=== PATIENT | female | born 1985 | race Caucasian/White ===

== ENCOUNTER 2017-03-08 06:45 | Day surgery (SDC) | payer BC ==
[~2017-03-08 06:45] MED LIST: RINGER'S SOLUTION,LACTATED 1,000 ML IV PRN; ROPIVACAINE HCL/PF 40 MG in NORMAL SALINE 16 ML IJ PRN; ceFAZolin SODIUM 1 GM VIAL IV PRN
[2017-03-08] MEDS ORDERED: RINGER'S SOLUTION,LACTATED 1,000 ML IV ONE (07:30)
[2017-03-08 10:04] VITALS: BP 110/65
--- NOTE | 2017-03-08 10:30 | OR ---
Operative Report - Dictated Report Narrative: Date: 03/08/2017 Physician: Chrsitiano Nelson M.D. 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 Cespedes Is a 31 year-old female who has been followed in my clinic with complaints of knee pain consistent with suspected patellofemoral pathology. She had previously undergone anterior cruciate ligament reconstruction multiple years ago and had ongoing anterior knee pain. Physical exam and diagnostic imaging were consistent with these complaints and concern for patellofemoral pathology. Conservative measures have failed including, but not limited to, passage of time, activity modification, medications, and injections. The risks , benefits, and alternatives were discussed in clinic. The risks being , bleeding, infection, blood clots, nerve, tendon, ligament, blood vessel injury, persistent pain, arthrosis, need for additional procedures, and persistent symptoms. Consent was obtained in the clinic. Procedure: After marking the correct extremity in the preoperative holding area, a timeout was performed in the operating room. IV antibiotics consisting of Ancef were administered prior to the procedure. A well-padded tourniquet was applied to the operative upper thigh. The leg was prepped and draped in a standard sterile fashion. 0.5% Marcaine with epinephrine was infused into the projected portal sites as well as the intra-articular space. A ward incision was made for inferior lateral portal. A blunt trocar and cannula was introduced into the knee. The suprapatellar pouch revealed no pathology. The medial patella facet showed grade 4 changes with notable loss of articular cartilage. The lateral patella facet showed grade 3 change with fissuring and minimal remaining articular cartilage lateral to the apex. The trochlea showed complete loss of articular cartilage over the entire width and length of the trochlea. The medial gutter revealed no pathology. The medial joint space was then entered utilizing a lateral post and valgus stress. A spinal needle was utilized for guidance into placement of an anterior medial portal. This was placed just superior to the medial meniscus ensuring that we could reach the posterior aspect of the medial joint space. A ward incision was made in the site, and the probe was introduced to the knee. The medial joint space was examined, and the medial femoral condyle showed no arthrosis. The medial tibial plateau showed no arthrosis. The medial meniscus no tear. The notch was then examined, and the ACL was noted to be intact. The PCL was noted to be intact. The lateral joint space was then examined using a varus force in the figure 4 position. Lateral femoral condyle showed no arthrosis. Lateral tibial plateau showed no arthrosis. The lateral meniscus showed no tear. The lateral gutter showed no pathology. The patella was mobilized both medially and laterally and was noted that it could significantly sublux laterally once the leg was relaxed. The denuded area of cartilage off the patella did engage with the lateral trochlear ridge. For this reason it was felt that a lateral release was not appropriate procedure as this would add to her instability. Once it was felt that we adequately addressed the pathology, the knee was thoroughly irrigated. The fluid was evacuated ensuring that we have removed all meniscal, chondral, and any other loose bodies. A final evaluation of the joint showed no additional pathology. The fluid was then evacuated of the knee , and the trocar and camera were removed from the joint. The wounds were closed with interrupted nylon after placing 20 mL of 0.2% ropivacaine into the joint. Dressings consisting of Xeroform, 4 x 4, ABD, soft roll, and an Andrei were applied. All sponge, needle, blade, and instrument counts were correct prior to closing the wounds. The patient was awoken and transferred to the postanesthesia care unit in stable condition.
== END 2017-03-08 06:46 | disposition home or self-care (01) ==
LOC: AMB 06:45
PROVIDERS: ATTEND Orthopaedic Surgery
PROC: 0SCD4ZZ Extirpation of Matter from Left Knee Joint, Percutaneous Endoscopic Approach (ICD-10-PCS; principal; 2017-03-08 08:00)
DX: M17.12 Unilateral primary osteoarthritis, left knee (principal); M23.52 Chronic instability of knee, left knee; D64.9 Anemia, unspecified; Z87.891 Personal history of nicotine dependence; Z68.30 Body mass index [BMI] 30.0-30.9, adult